=== PATIENT | female | born 1995 | race Caucasian/White ===

== ENCOUNTER → 2017-02-11 | Outpatient (CLI) | payer OTHER ==
[~2017-02-11] MED LIST: IBUP-232 PO; OXYC1TAB63 PO; PRENTAB44
== END ==
LOC: HPND 10:59
PROVIDERS: ATTEND Obstetrics & Gynecology
DX: O36.60X0 Maternal care for excessive fetal growth, unspecified trimester, not applicable or unspecified (principal)
CPT/HCPCS: 76816

== ENCOUNTER 2017-02-17 14:46 | Inpatient (IN) | payer OTHER ==
[~2017-02-17] VITALS: Ht 167.6 cm; Wt 154.7 kg
[2017-02-19] VITALS (9 sets, daily range): BP systolic 99–126; BP diastolic 55–66; PULSE 83–98; RESP 18–28; TEMP 97.7–98; O2SAT 90–98
[2017-02-19] MEDS ORDERED: LACTATED RINGER'S 1000 ML INJ 1,000 ML IV ONE (10:22)
--- NOTE | 2017-02-19 10:24 | HHI.HP ---
HPI Chief Complaint Primary for macrosomia. Date Seen: Feb 19, 2017 Travel History International Travel<30 Days: No Contact w/Intl Traveler<30Days: No History of Present Illness HPI Patient is a 22 year old at 39-1/7 weeks gestation who presents today for primary for macrosomia. She denies any vaginal bleeding or discharge. No gush or leaking of fluid. Positive movement. History Past Medical History Medical History: Denies Significant Hx Obstetric History Obstetric History Past Surgical History Surgical History: No Previous Surgery Family History Family History: Negative Social History Alcohol Use: No Tobacco Use: No Substance Abuse: No Allergies-Medications (Allergen,Severity, Reaction): Coded Allergies: No Known Allergies (Unverified , 02/19/17) Home Meds Reported Medications Multivit-Min W/Fe-FA ( and Iron)1 Tab Tab 02/19/17 Review of Systems Except as stated in HPI: all other systems reviewed are Neg General / Constitutional: No: Fever, Chills Eyes: No: Blurred Vision, Visual changes HENT: No: Headaches Cardiovascular: No: Chest Pain or Discomfort Respiratory: No: Short of Breath Genitourinary: No: Pelvic Pain, Discharge, Vaginal Bleeding Musculoskeletal: Edema Psychiatric: No: Substance Abuse Physical Exam Narrative GENERAL: Well-nourished, well-developed patient. SKIN: Warm and dry. HEAD: Normocephalic and atraumatic. EYES: No scleral icterus. No injection or drainage. ENT: No nasal drainage noted. Mucous membranes pink. Airway patent. NECK: Supple, trachea midline. No JVD. CARDIOVASCULAR: Regular rate and rhythm without murmurs, gallops, or rubs. RESPIRATORY: Breath sounds equal bilaterally. No accessory muscle use. ABDOMEN/GI: Abdomen soft, non-tender, bowel sounds present, no rebound, no guarding Gravid to 40 weeks size GENITOURINARY: Presentation: vertex Membranes: intact Uterine Contractions: none FHT's: Category: I Baseline: 125 Reactive: + Variability: moderate Decels: none EXTREMITIES: No cyanosis or edema. BACK: Nontender without obvious deformity. No CVA tenderness. NEUROLOGICAL: Awake and alert. Motor and sensory grossly within normal limits. Normal speech. Data Data Vital Signs Reviewed: Yes Orders Admit To Inpatient (02/19/17 ) Assessment/Plan Assessment and Plan 22 year old at 39-1/7 weeks gestation. 1. IUP- Category I tracing, reassuring. 2. Primary for macrosomia. 3. GBS negative. dw Florence Newton MD R2 Feb 19, 2017 10:24
[2017-02-19] MEDS ORDERED: PRENTAB44 (10:31)
[2017-02-19] MEDS ORDERED: LACTATED RINGER'S 1000 ML INJ 1,000 ML IV SCH ×2 (10:52→18:25)
[2017-02-19 11:24] LABS: AUTOMATED NEUTROPHIL # 6.9 TH/MM3 (1.8-7.7); BASOPHIL % 0.4 % (0.0-2.0); EOSINOPHIL # 0.1 TH/MM3 (0-0.4); EOSINOPHIL % 1.4 % (0.0-4.0); HEMATOCRIT 35.2 % (35.0-46.0); HEMO FLAGS DIFF FINAL; LYMPH % 17.4 % (9.0-44.0); LYMPHOCYTE # 1.6 TH/MM3 (1.0-4.8); MEAN CELL VOLUME 93.2 FL (80.0-100.0); MEAN CORPUSCULAR HEMOGLOBIN 31.8 PG (27.0-34.0); MEAN CORPUSCULAR HGB CONC 34.1 % (32.0-36.0); MONO % 5.2 % (0.0-8.0); NEUT % 75.6 % (16.0-70.0); PLATELET COUNT 262 TH/MM3 (150-450); RED BLOOD COUNT 3.77 MIL/MM3 (4.00-5.30); RED CELL DISTRIBUTION WIDTH 14.7 % (11.6-17.2); WHITE BLOOD COUNT 9.1 TH/MM3 (4.0-11.0)
[2017-02-19 11:28] LABS: BACTERIA, URINE MANY /hpf; BLOOD, URINE NEG (NEG); COMMENT (UR) CULTURE INDICATED; CULTURE IF INDICATED CULTURE INDICATED; GLUCOSE,URINE NEG (NEG); KETONE, URINE NEG (NEG); MUCUS URINE MANY /lpf (OCC); NITRITE,URINE NEG (NEG); PH, URINE 6.5 (5.0-8.5); SQUAMOUS EPITHELIAL CELL URINE 31 /hpf (0-5); TRANSITIONAL EPI CELLS, URINE 1 /hpf; URINE COLOR DARK-YELLOW (YELLW/STRAW)
[2017-02-19] MEDS ORDERED: ceFAZolin 2 GM PREMIX 50 ML IV SCH (11:30)
[2017-02-19] MEDS ORDERED: CITRIC ACID-SODIUM CITRATE LIQ 30 ML UDC ONE (11:43)
[2017-02-19] MEDS ORDERED: ceFAZolin INJ 1,000 MG VIAL ONE (11:43)
[2017-02-19] MEDS ORDERED: OXYTOCIN 10 UNIT/ML AMP ONE (11:43)
[2017-02-19] MEDS ORDERED: CITRIC ACID-SODIUM CITRATE LIQ 30 ML UDC PO SCH (12:00)
[2017-02-19] MEDS ORDERED: SIMETHICONE 80 MG CHEWABLE TAB PO PRN (13:30)
[2017-02-19] MEDS ORDERED: SODIUM CHLORIDE 0.9% FLUSH 10 ML FLUSH IV FLUSH PRN (13:30)
[2017-02-19] MEDS ORDERED: ONDANSETRON HCL 4 MG/2 ML VIAL IV PUSH PRN (13:30)
[2017-02-19] MEDS ORDERED: oxyCODONE/ACETAMINOPHEN 5 MG/325 MG TAB PO PRN (13:30)
[2017-02-19] MEDS ORDERED: DOCUSATE SODIUM 50 MG/SENNA 8.6 MG TAB PO PRN (13:30)
[2017-02-19] MEDS ORDERED: OXYTOCIN 30 UNITS-500ML PREMIX 500 ML IV ONE (13:30)
--- NOTE | 2017-02-19 13:43 | PD.OP ---
Operative Report Date of Surgery: Feb 19, 2017 Preoperative Diagnosis: (1) macrosomia during in third trimester Postoperative Diagnosis: (1) macrosomia during in third trimester Procedure: Preoperative Diagnosis: 1. Macrosomia 2. Intrauterine at 39-1/7 weeks gestation Postoperative Diagnosis: 1. Macrosomia 4479g 2. Intrauterine at 39-1/7 weeks gestation Procedure Primary low transverse section. Anesthesia Spinal Surgeon Dallin Bhat MD Co-Surgeon Florence Saunders MD Findings Normal female 4479g with Apgars 9 and 9. Normal fallopian tubes, normal ovaries, normal uterus. Complications None. Counts Correct Estimated Blood Loss 500mL Fluids Crystalloids. Disposition The patient tolerated procedure well, went to recovery room in good condition. Procedure in Detail The patient was taken to the operating room, identified by name band and verbally given a spinal anesthetic, prepped and draped in the usual sterile fashion for a primary section. Time-out was taken. A Pfannenstiel incision was made. The incision as taken down to the fascia. The fascia was taken off the rectus muscles by blunt and sharp dissection. The rectus muscles were spread bluntly and the peritoneum entered under direct vision without difficulty. The incision was extended with care to avoid the urinary bladder. The lower uterine segment was identified and a bladder flap was created in the usual fashion, pushing the peritoneum off the bladder. The incision on the uterus was made in a transverse manner and taken down in the midline until the uterine cavity was entered. Clear fluid was noted and the incision was extended with the surgeon's fingers. The fetus was noted to be in vertex position. The head was delivered with the assistance of a Kiwi vacuum and the body of the was delivered immediately following without difficulty. The cord was doubly clamped and cut after a 45-second wait period. The baby was handed to the resuscitation team present. The placenta was removed manually after cord blood was taken and the uterus was curettaged twice with a wet lap. The uterus was delivered from the abdomen. The uterine incision was repaired with a 0 Vicryl in a running fashion in two layers , the second layer imbricating the first. The cul-de-sac was cleaned of blood and debris, the uterus delivered back into the abdomen. The incision was dry. At this point the rectus muscles were reapproximated with 0 Vicryl in a running fashion. The fascia was repaired with 0 Vicryl in a running fashion. The subcu was repaired with 3-0 Vicryl in a running fashion and the skin was repaired with 4-0 Monocryl in a subcuticular manner. She tolerated the procedure well and went to the recovery room in good condition. Surgeon: Dr. Dallin Bhat Pathology Laboratory Aides Teacher(s): Kayleigh Dowd Resident Surgeon: Florence Mahajan MD R2 Feb 19, 2017 13:43
[2017-02-19] MEDS ORDERED: MORPHINE SULFATE PF 5 MG/10 ML VIAL ONE (13:46)
[2017-02-19] MEDS ORDERED: ONDANSETRON HCL 4 MG/2 ML VIAL ONE (13:46)
[2017-02-19] MEDS ORDERED: OXYTOCIN 30 UNITS-500ML PREMIX 500 ML ONE (14:25)
[2017-02-19] MEDS ORDERED: KETOROLAC TROMETHAMINE 60 MG/2 ML (IM) VIAL IM PRN (14:30)
[2017-02-19] MEDS ORDERED: ACETAMINOPHEN 1000 MG/100 ML VIAL IV ONE (15:00)
[2017-02-19] MEDS ORDERED: SODIUM CHLORIDE 0.9% FLUSH 10 ML FLUSH IV FLUSH SCH (21:00)
[2017-02-19] MEDS ORDERED: OXYTOCIN 30 UNITS-500ML PREMIX 500 ML IV PRN (23:30)
[2017-02-20] VITALS: BP 101/63; PULSE 100; RESP 18; TEMP 97.5
[2017-02-20 04:00] VITALS: BP 120/80; PULSE 111; RESP 18; TEMP 99.3
[2017-02-20] MEDS: IBUPROFEN 600 MG TAB PO PRN ×2 (05:49→18:15)
[2017-02-20] MEDS: oxyCODONE/ACETAMINOPHEN 5 MG/325 MG TAB PO PRN ×3 (06:44→22:47)
[2017-02-20 07:08] LABS: AUTOMATED NEUTROPHIL # 7.2 TH/MM3 (1.8-7.7); BASOPHIL % 0.3 % (0.0-2.0); EOSINOPHIL # 0.1 TH/MM3 (0-0.4); EOSINOPHIL % 0.5 % (0.0-4.0); HEMATOCRIT 27.6 % (35.0-46.0); HEMO FLAGS DIFF FINAL; LYMPH % 18.3 % (9.0-44.0); LYMPHOCYTE # 1.8 TH/MM3 (1.0-4.8); MEAN CELL VOLUME 93.4 FL (80.0-100.0); MEAN CORPUSCULAR HEMOGLOBIN 32.1 PG (27.0-34.0); MEAN CORPUSCULAR HGB CONC 34.4 % (32.0-36.0); NEUT % 72.9 % (16.0-70.0); PLATELET COUNT 204 TH/MM3 (150-450); RED BLOOD COUNT 2.95 MIL/MM3 (4.00-5.30); RED CELL DISTRIBUTION WIDTH 14.7 % (11.6-17.2); WHITE BLOOD COUNT 9.9 TH/MM3 (4.0-11.0)
[2017-02-20 08:00] VITALS: BP 102/57; PULSE 87; RESP 20; TEMP 98.2
--- NOTE | 2017-02-20 09:20 | HHI.OB ---
Subjective Post Operative Day: 1 Objective Vitals/I&O Vital Signs Date Time Temp Pulse Resp B/P Pulse Ox O2 Delivery O2 Flow Rate FiO2 02/20/17 04:00 99.3 111 18 120/80 02/20/17 00:00 97.5 100 18 02/20/17 00:00 101/63 02/19/17 20:20 98.0 98 18 122/66 02/19/17 15:41 97.7 83 20 02/19/17 15:41 126/55 02/19/17 15:00 90 02/19/17 15:00 94 18 109/57 02/19/17 14:52 97.8 02/19/17 14:45 112/57 02/19/17 14:45 89 18 98 02/19/17 14:30 96 18 119/59 98 02/19/17 14:15 117/56 02/19/17 14:15 20 02/19/17 14:15 95 28 95 02/19/17 14:00 87 18 122/61 96 02/19/17 13:45 96 02/19/17 13:45 97.9 91 18 99/58 Result Diagram: 02/20/17 0548 Objective Remarks GENERAL: Well-nourished, well-developed patient. CARDIOVASCULAR: Regular rate and rhythm without murmurs, gallops, or rubs. RESPIRATORY: Breath sounds equal bilaterally. No accessory muscle use. ABDOMEN/GI: Abdomen soft, non-tender, bowel sounds present. Incision: pressure dressing, Clean, dry and intact. Fundus: Firm, non-tender at umbilicus. GENITOURINARY: Light to moderate bleeding. EXTREMITIES: No cyanosis, +1 edema to lower extremities, non-tender, without signs of DVT. Medications and IVs Current Medications Medications (Trade) Dose Ordered Sig/Elliott Route Start Time Stop Time Status Last Admin (Lr 1000 ml Inj) 1,000 ml @ 100 mls/hr Q10H IV 02/19/17 18:25 02/20/17 14:24 (NS Flush) 2 ml BID IV FLUSH 02/19/17 21:00 (NS Flush) 2 ml UNSCH PRN IV FLUSH 02/19/17 13:30 (Mylicon Chew) 80 mg QID PRN PO 02/19/17 13:30 (Motrin) 600 mg Q6H PRN PO 02/19/17 13:30 02/20/17 05:49 (Percocet 5-325 Mg) 1 tab Q4H PRN PO 02/19/17 13:30 02/20/17 06:44 (Percocet 5-325 Mg) 2 tab Q4H PRN PO 02/19/17 13:30 (Nadine-Colace) 2 tab Q12H PRN PO 02/19/17 13:30 (M-M-R Ii Inj) 0.5 ml ONCE ONCE SQ 02/20/17 16:00 02/20/17 16:01 (Boostrix Inj) 0.5 ml ONCE ONCE IM 02/20/17 16:00 02/20/17 16:01 (Zofran Inj) 4 mg Q6H PRN IV PUSH 02/19/17 13:30 02/19/17 20:32 Assessment/Plan Problem List: (1) S/P primary low transverse Plan: routine (2) Anemia Plan: will treat pp Assessment and Plan POD #1 pt doing well pain well managed with oral pain medication will shower today denies sob, cp or dizziness bonding with / routine Discharge Planning conside Attending Attestation consider dc in 1-2- days Karlee Mueller Feb 20, 2017 09:20
--- NOTE | 2017-02-20 09:21 | HHI.DCPOC ---
Discharge Care Plan Diagnosis: (1) S/P primary low transverse (2) Anemia Your Health Problems Are: delivery Report Symptoms to Your Doctor -Temperature above 100.5 degrees -Redness, of incision or excessive or foul smelling drainage -Unusual pain or calf pain -Increased vaginal bleeding -Painful or difficulty urinating -Feelings of extreme sadness or anxiety after 2 weeks Goals to Promote Your Health * To prevent worsening of your condition and complications * To maintain your health at the optimal level Directions to Meet Your Goals Take your medications as prescribed Follow your dietary instruction Follow activity as directed Ensure plenty of rest for recovery Drink fluids for hydration Keep your appointments as scheduled Take your immunizations and boosters as scheduled If your symptoms worsen call your PCP, if no PCP go to Urgent Care Center or Emergency Room Smoking is Dangerous to Your Health. Avoid second hand smoke Call the 24-hour crisis hotline for domestic abuse at Karlee Mueller Feb 20, 2017 09:20
[2017-02-20] MEDS ORDERED: DIPHTH/TETANUS/ACEL PERTUSSIS (BOOSTER) 0.5 ML VIAL/PFS IM ONE (16:00)
[2017-02-20] MEDS ORDERED: MEASLES, MUMPS, RUBELLA VACCINE 0.5 ML VIAL SQ ONE (16:00)
[2017-02-20 19:45] VITALS: BP 122/67; PULSE 93; RESP 17; TEMP 98.7
[2017-02-21] MEDS: IBUPROFEN 600 MG TAB PO PRN ×2 (00:37→10:07)
[2017-02-21] MEDS: oxyCODONE/ACETAMINOPHEN 5 MG/325 MG TAB PO PRN ×3 (00:48→11:17)
[2017-02-21 08:00] VITALS: BP 108/71; PULSE 78; RESP 24; TEMP 98.2
[2017-02-21] MEDS ORDERED: IBUP-232 PO (14:06)
[2017-02-21] MEDS ORDERED: OXYC1TAB63 PO (14:06)
--- NOTE | 2017-02-21 14:15 | HHI.OB ---
Subjective Post Operative Day: 2 Remarks Doing well, pain is under controll Baby is doing well Tolerating diet Objective Vitals/I&O Vital Signs Date Time Temp Pulse Resp B/P Pulse Ox O2 Delivery O2 Flow Rate FiO2 02/21/17 08:00 98.2 02/21/17 08:00 78 24 108/71 02/20/17 19:45 98.7 93 17 02/20/17 19:45 122/67 Result Diagram: 02/20/17 0548 Objective Remarks GENERAL: Well-nourished, well-developed patient. CARDIOVASCULAR: Regular rate and rhythm without murmurs, gallops, or rubs. RESPIRATORY: Breath sounds equal bilaterally. No accessory muscle use. ABDOMEN/GI: Abdomen soft, non-tender, bowel sounds present. Incision: pressure dressing, Clean, dry and intact. Fundus: Firm, non-tender at umbilicus. GENITOURINARY: Light to moderate bleeding. EXTREMITIES: No cyanosis, +1 edema to lower extremities, non-tender, without signs of DVT. Medications and IVs Current Medications Medications (Trade) Dose Ordered Sig/Elliott Route Start Time Stop Time Status Last Admin (NS Flush) 2 ml BID IV FLUSH 02/19/17 21:00 (NS Flush) 2 ml UNSCH PRN IV FLUSH 02/19/17 13:30 (Mylicon Chew) 80 mg QID PRN PO 02/19/17 13:30 02/21/17 00:37 (Motrin) 600 mg Q6H PRN PO 02/19/17 13:30 02/21/17 10:07 (Percocet 5-325 Mg) 1 tab Q4H PRN PO 02/19/17 13:30 02/21/17 11:17 (Percocet 5-325 Mg) 2 tab Q4H PRN PO 02/19/17 13:30 02/20/17 11:45 (Nadine-Colace) 2 tab Q12H PRN PO 02/19/17 13:30 (Zofran Inj) 4 mg Q6H PRN IV PUSH 02/19/17 13:30 02/19/17 20:32 Assessment/Plan Problem List: (1) S/P primary low transverse Plan: routine (2) Anemia Plan: will treat pp Assessment and Plan POD #2 pt doing well pain well managed with oral pain medication routine Home today Dallin Bhat MD Feb 21, 2017 14:15
== END 2017-02-21 16:05 | disposition home or self-care (01) | DRG 765 ==
LOC: H2EB 02-19 09:07 → H1EA 02-19 15:21
PROVIDERS: ADMIT Obstetrics & Gynecology; ATTEND Obstetrics & Gynecology
PROC: 10D00Z1 Extraction of Products of Conception, Low, Open Approach (ICD-10-PCS; principal; 2017-02-19)
DX: O36.63X0 Maternal care for excessive fetal growth, third trimester, not applicable or unspecified (principal); Z68.43 Body mass index [BMI] 50.0-59.9, adult; O99.214 Obesity complicating childbirth; E66.9 Obesity, unspecified; O99.02 Anemia complicating childbirth; D64.9 Anemia, unspecified; Z3A.39 39 weeks gestation of pregnancy; Z37.0 Single live birth
CPT/HCPCS: 59025; 76818; 81001; 85025; 86850; 86900; 86901; 87086; 90715; J0690; J2274; J2405; J2590; J3010

== ENCOUNTER 2017-06-14 04:36 | Emergency (ER) | payer OTHER ==
[~2017-06-14] VITALS: Ht 167.6 cm; Wt 144.0 kg
[2017-06-14] MEDS ORDERED: MAPA500T13 PO (04:46)
[2017-06-14 04:47] VITALS: BP 129/75; PULSE 113; RESP 17; TEMP 99; O2SAT 99
[2017-06-14 05:13] LABS: GLUCOSE,URINE NEG (NEG); KETONE, URINE NEG (NEG); NITRITE,URINE NEG (NEG)
[2017-06-14 05:17] LABS: BLOOD, URINE TRACE (NEG)
[2017-06-14 05:18] LABS: BACTERIA, URINE FEW /hpf; COMMENT (UR) CULT NOT INDICATED; CULTURE IF INDICATED CULT NOT INDICATED; RBC, URINE 0-3 /hpf (0-3); URINE COLOR STRAW (YELLW/STRAW)
--- NOTE | 2017-06-14 05:19 | PD ---
HPI Chief Complaint: Fever Time Seen by Provider: 05:15 Travel History International Travel<30 days: No Contact w/Intl Traveler<30days: No Traveled to known affect area: No History of Present Illness HPI 22 year-old female presents to the emergency department for complaint of urinary frequency urgency and lower abdominal discomfort and fever reportedly at home of 107F yesterday and today when she checked it at home herself using her thermometer. Patient states she took a one-time dose of Tylenol and her fever resolved. Patient's had no nausea no vomiting no generalized abdominal pain no diarrhea. No flank pain. Last menstrual period was beginning of May and normal for her denies . Patient has history of recurrent urinary tract infections. Patient states symptoms are the same. The patient rates her pain as 5/10 in intensity. Patient denies any vaginal bleeding or vaginal discharge. PFSH Past Medical History Narrative Medical urinary tract infection; no surgery; no tobacco use; nursing notes reviewed Medical History: Denies Significant Hx Diminished Hearing: No Tetanus Vaccination: < 5 Years Influenza Vaccination: Yes ?: Unknown LMP: 05/15/2017 Social History Alcohol Use: No Tobacco Use: No Substance Use: No Allergies-Medications (Allergen,Severity, Reaction): Coded Allergies: No Known Allergies (Unverified , 06/14/17) Reported Meds & Prescriptions Reported Meds & Active Scripts Active Reported Mapap Extra Strength (Acetaminophen) 500 Mg Tab 1,000 Mg PO Q4-6H PRN Review of Systems Except as stated in HPI: all other systems reviewed are Neg General / Constitutional: Positive: Fever HENT: No: Congestion Cardiovascular: No: Chest Pain or Discomfort Respiratory: No: Shortness of Breath Gastrointestinal: No: Nausea, Vomiting, Abdominal Pain Genitourinary: Positive: Urgency, Frequency, Dysuria, No: Pelvic Pain, Flank Pain, Discharge, Vaginal Bleeding Musculoskeletal: No: Myalgias, Arthralgias Skin: No Rash Neurologic: No: Weakness Psychiatric: No: Anxiety Hematologic/Lymphatic: No: Lymph Node Enlargement Physical Exam Narrative GENERAL: Well-developed well-nourished female in no acute distress no respiratory distress SKIN: Warm and dry. HEAD: Normocephalic. EYES: No scleral icterus. No injection or drainage. NECK: Supple, trachea midline. No JVD or lymphadenopathy. CARDIOVASCULAR: Regular rate and rhythm without murmurs, gallops, or rubs. RESPIRATORY: Breath sounds equal bilaterally. No accessory muscle use. GASTROINTESTINAL: Abdomen soft, non-tender, nondistended. Pelvic exam: Normal external exam no redness no lesions; speculum exam scant mucus no blood no clots no tissue, cervical os closed; bimanual exam no cervical motion tenderness no uterine enlargement no adnexal mass or tenderness. SKELETAL: No cyanosis, or edema. BACK: Nontender without obvious deformity. No CVA tenderness. Data Data Last Documented VS Vital Signs Date Time Temp Pulse Resp B/P (MAP) Pulse Ox O2 Delivery O2 Flow Rate FiO2 06/14/17 06:03 92 18 148/60 (89) 97 Room Air 06/14/17 04:47 99.0 Orders Orders Ed Urine Pregnancytest Poc (06/14/17 05:00) Urinalysis - C+S If Indicated (06/14/17 05:00) ^ Saline Lock (06/14/17 05:21) Complete Blood Count With Diff (06/14/17 05:21) Basic Metabolic Panel (Bmp) (06/14/17 05:21) Lactic Acid (06/14/17 05:21) Blood Culture (06/14/17 05:21) Gc And Chlamydia Pcr (06/14/17 05:35) Wet Prep Profile (06/14/17 05:35) Sodium Chlorid 0.9% 500 Ml Inj (Ns 500 M (06/14/17 06:30) Ketorolac Inj (Toradol Inj) (06/14/17 06:30) Labs Laboratory Tests Test 06/14/17 05:00 06/14/17 05:45 Urine Color STRAW Urine Turbidity CLEAR Urine pH 6.0 Urine Specific [place] 1.005 Urine Protein NEG mg/dL Urine Glucose (UA) NEG mg/dL Urine Ketones NEG mg/dL Urine Occult Blood TRACE Urine Nitrite NEG Urine Bilirubin NEG Urine Leukocyte Esterase SMALL Urine RBC 0-3 /hpf Urine WBC 6-8 /hpf Urine Squamous Epithelial Cells 6-8 /hpf Urine Bacteria FEW /hpf Microscopic Urinalysis Comment CULT NOT INDICATED White Blood Count 8.9 TH/MM3 Red Blood Count 4.30 MIL/MM3 Hemoglobin 12.7 GM/DL Hematocrit 38.3 % Mean Corpuscular Volume 89.0 FL Mean Corpuscular Hemoglobin 29.6 PG Mean Corpuscular Hemoglobin Concent 33.3 % Red Cell Distribution Width 14.3 % Platelet Count 225 TH/MM3 Mean Platelet Volume 7.5 FL Neutrophils (%) (Auto) 76.9 % Lymphocytes (%) (Auto) 15.3 % Monocytes (%) (Auto) 7.2 % Eosinophils (%) (Auto) 0.1 % Basophils (%) (Auto) 0.5 % Neutrophils # (Auto) 6.9 TH/MM3 Lymphocytes # (Auto) 1.4 TH/MM3 Monocytes # (Auto) 0.6 TH/MM3 Eosinophils # (Auto) 0.0 TH/MM3 Basophils # (Auto) 0.0 TH/MM3 CBC Comment DIFF FINAL Differential Comment Clue Cells (Wet Prep) NONE SEEN Vaginal Trichomonas (Wet Prep) NONE SEEN Vaginal Yeast (Wet Prep) NONE SEEN Blood Urea Nitrogen 10 MG/DL Creatinine 0.72 MG/DL Random Glucose 112 MG/DL Calcium Level 9.1 MG/DL Sodium Level 136 MEQ/L Potassium Level 4.0 MEQ/L Chloride Level 103 MEQ/L Carbon Dioxide Level 26.1 MEQ/L Anion Gap 7 MEQ/L Estimat Glomerular Filtration Rate 100 ML/MIN Lactic Acid Level 1.3 mmol/L MDM Medical Decision Making Medical Screen Exam Complete: Yes Emergency Medical Condition: Yes Medical Record Reviewed: Yes Interpretation(s) UA: 6-8 squamous epithelial cells, few bacteria,6-8 WBCs, trace blood; culture not indicated POC hcg: negative wet prep: negative Vital Signs Date Time Temp Pulse Resp B/P (MAP) Pulse Ox O2 Delivery O2 Flow Rate FiO2 06/14/17 06:03 92 18 148/60 (89) 97 Room Air 06/14/17 05:02 18 99 Room Air 06/14/17 04:47 99.0 113 17 129/75 (93) 99 CBC & BMP Diagram 06/14/17 05:45 Calcium Level 9.1 Vital Signs Date Time Temp Pulse Resp B/P (MAP) Pulse Ox O2 Delivery O2 Flow Rate FiO2 06/14/17 06:03 92 18 148/60 (89) 97 Room Air 06/14/17 05:02 18 99 Room Air 06/14/17 04:47 99.0 113 17 129/75 (93) 99 Lactic acid: 1.3, not elevated Differential Diagnosis UTI, viral syndrome, Narrative Course Point of care test negative urinalysis specimens collected and sent for resulting Sepsis Criteria SIRS Criteria (2 or more): Heart rate over 90 Diagnosis Primary Impression: Dysuria Additional Impressions: H/O cystitis Viral syndrome Referrals: Primary Care Physician call for appointment Patient Instructions: General Instructions Additional Instructions: Increase fluid hydration Take acetaminophen/Tylenol every 4 hours as needed for fever 100.4F or greater Take ibuprofen 800 mg as often as every 8 hours as needed for fever 100.4F or greater or for pain associated with inflammation Finished 3 day course of antibiotic for subacute UTI/cystitis Return to the emergency department for any concerns or change in condition Follow-up with your primary care/[facility]EC[facility]IVE Med/Other Pt SpecificInfo: Prescription(s) given Scripts Phenazopyridine (Pyridium) 100 Mg Tab 100 MG PO Q8H Y for DYSURIA, #6 TAB 0 Refills Prov: Anyi Kam MD 06/14/17 Nitrofurantoin Monohydrate Macrocrystals (Macrobid) 100 Mg Cap 100 MG PO BID for Infection, #6 CAP 0 Refills Prov: Anyi Kam MD 06/14/17 Disposition: 01 DISCHARGE HOME Condition: Stable Anyi Kam MD Jun 14, 2017 05:19
[2017-06-14] MEDS ORDERED: SODIUM CHLOR 0.9% 1000 ML INJ 1,000 ML IV SCH (05:30)
[2017-06-14 06:00] LABS: AUTOMATED NEUTROPHIL # 6.9 TH/MM3 (1.8-7.7); BASOPHIL % 0.5 % (0.0-2.0); EOSINOPHIL % 0.1 % (0.0-4.0); HEMATOCRIT 38.3 % (35.0-46.0); LYMPH % 15.3 % (9.0-44.0); LYMPHOCYTE # 1.4 TH/MM3 (1.0-4.8); MEAN CORPUSCULAR HEMOGLOBIN 29.6 PG (27.0-34.0); MEAN CORPUSCULAR HGB CONC 33.3 % (32.0-36.0); MONO % 7.2 % (0.0-8.0); NEUT % 76.9 % (16.0-70.0); PLATELET COUNT 225 TH/MM3 (150-450); RED CELL DISTRIBUTION WIDTH 14.3 % (11.6-17.2); WHITE BLOOD COUNT 8.9 TH/MM3 (4.0-11.0)
[2017-06-14 06:01] LABS: HEMO FLAGS DIFF FINAL
[2017-06-14 06:03] VITALS: BP 148/60; PULSE 92; RESP 18; O2SAT 97
[2017-06-14 06:14] LABS: BICARBONATE 26.1 MEQ/L (21.0-32.0)
[2017-06-14] MEDS ORDERED: PHEN0.4T PO (06:29)
[2017-06-14] MEDS ORDERED: MACR100C2 PO (06:29)
[2017-06-14] MEDS ORDERED: KETOROLAC TROMETHAMINE 30 MG/ML (IVP) VIAL IV PUSH ONE (06:30)
[2017-06-14] MEDS ORDERED: SODIUM CHLORID 0.9% 500 ML INJ 500 ML IV ONE (06:30)
[2017-06-14 06:31] VITALS: PULSE 93; RESP 18; TEMP 99.7; O2SAT 100
[2017-06-14 12:15] LABS: CHLAMYDIA PCR NOT DETECTED (NOT DETECT); NEISSERIA PCR NOT DETECTED (NOT DETECT)
== END 2017-06-14 06:55 | disposition home or self-care (01) ==
LOC: PHED 04:36
DX: R30.0 Dysuria (principal); Z87.440 Personal history of urinary (tract) infections; B34.9 Viral infection, unspecified
CPT/HCPCS: 80048; 81001; 83605; 84703; 85025; 87040; 87210; 87491; 87591; 96374; 99284; J1885; J7040

== ENCOUNTER 2017-06-14 13:54 | Inpatient (IN) | payer OTHER ==
[2017-06-14] VITALS (7 sets, daily range): BP systolic 116–154; BP diastolic 74–83; PULSE 85–133; RESP 16–24; TEMP 98.9–104.5; O2SAT 95–98
[~2017-06-14] VITALS: Ht 167.6 cm; Wt 147.0 kg
[~2017-06-14 13:54] MED LIST changes: +MACR100C2 PO; +MAPA500T13 PO; +PHEN0.4T PO
[2017-06-14] MEDS ORDERED: SODIUM CHLOR 0.9% 1000 ML INJ 1,000 ML IV ONE (14:30)
[2017-06-14] MEDS ORDERED: IBUPROFEN 600 MG TAB PO ONE (14:30)
--- NOTE | 2017-06-14 14:32 | PD ---
HPI Chief Complaint: Fever Time Seen by Provider: 14:14 Travel History International Travel<30 days: No Contact w/Intl Traveler<30days: No Traveled to known affect area: No History of Present Illness HPI The patient was seen and examined in the presence of the nurse. This patient complains of high fever. She was seen her early this morning complaining of fever. She had a fairly extensive workup which didn't reveal much. She was discharged with Macrobid. She took one dose at home but didn't check her temperature is quite elevated and came back. Current temperature 104.5. Patient has some complaints of bilateral flank pain denies midline pain. No injury. She did have some mild dysuria but nothing significant. Denies cough or shortness of breath or abdominal pain or sore throat or runny nose or congestion or diarrhea. No alleviating factors. She took Tylenol 3 hours ago and her fever remains high. No exacerbating factors. Duration 2 days. Severity symptoms is moderate PFSH Past Medical History Diminished Hearing: No Influenza Vaccination: No ?: Not Past Surgical History Section: Yes Social History Alcohol Use: No Tobacco Use: No Substance Use: No Allergies-Medications (Allergen,Severity, Reaction): Coded Allergies: No Known Allergies (Unverified , 06/14/17) Reported Meds & Prescriptions Reported Meds & Active Scripts Active Pyridium (Phenazopyridine HCl) 100 Mg Tab 100 Mg PO Q8H PRN Macrobid (Nitrofurantoin Monoh/Nitrofur Macro) 100 Mg Cap 100 Mg PO BID Reported Mapap Extra Strength (Acetaminophen) 500 Mg Tab 1,000 Mg PO Q4-6H PRN Review of Systems General / Constitutional: Positive: Fever, Chills Eyes: No: Visual changes HENT: No: Headaches Cardiovascular: Positive: Tachycardia, No: Chest Pain or Discomfort Respiratory: No: Shortness of Breath Gastrointestinal: No: Abdominal Pain Genitourinary: Positive: Dysuria, Flank Pain Musculoskeletal: Positive: Pain Skin: No Rash Neurologic: No: Weakness Psychiatric: No: Depression Endocrine: No: Polydipsia Hematologic/Lymphatic: No: Easy Bruising Physical Exam Narrative GENERAL: Well-nourished, well-developed patient with high fever SKIN: Focused skin assessment reveals no rash and nodules. Skin is Warm and dry. HEAD: Atraumatic. Normocephalic. EYES: Pupils equal and round. No scleral icterus. No injection or drainage. ENT: No nasal bleeding or discharge. Mucous membranes pink and moist. Oral cavity clear NECK: Trachea midline. No JVD. No meningeal signs CARDIOVASCULAR: Regular rate and rhythm. No murmur appreciated. RESPIRATORY: No accessory muscle use. Clear to auscultation. Breath sounds equal bilaterally. GASTROINTESTINAL: Abdomen soft, obese, non-tender, nondistended. Hepatic and splenic margins not palpable. MUSCULOSKELETAL: No obvious deformities. No clubbing. No cyanosis. No edema. NEUROLOGICAL: Awake and alert. No obvious cranial nerve deficits. Motor grossly within normal limits. Normal speech. PSYCHIATRIC: Appropriate mood and affect; insight and judgment normal. Data Data Last Documented VS Vital Signs Date Time Temp Pulse Resp B/P (MAP) Pulse Ox O2 Delivery O2 Flow Rate FiO2 06/14/17 15:46 103.0 118 16 116/81 (93) 95 Orders Orders Iv Access Insert/Monitor (06/14/17 14:20) Complete Blood Count With Diff (06/14/17 14:20) Blood Culture (06/14/17 14:20) Ct Abd/Pel W Iv Contrast(Rout) (06/14/17 ) Ibuprofen (Motrin) (06/14/17 14:30) Sodium Chlor 0.9% 1000 Ml Inj (Ns 1000 M (06/14/17 14:30) Chest, Single Ap (06/14/17 ) Iohexol 350 Inj (Omnipaque 350 Inj) (06/14/17 15:31) Urinalysis - C+S If Indicated (06/14/17 15:37) Ceftazidime Inj (Fortaz Inj) (06/14/17 16:15) Admit Order (Ed Use Only) (06/14/17 16:17) Labs Laboratory Tests Test 06/14/17 15:18 06/14/17 15:33 White Blood Count 10.9 TH/MM3 Red Blood Count 4.05 MIL/MM3 Hemoglobin 12.5 GM/DL Hematocrit 35.9 % Mean Corpuscular Volume 88.5 FL Mean Corpuscular Hemoglobin 30.8 PG Mean Corpuscular Hemoglobin Concent 34.7 % Red Cell Distribution Width 14.2 % Platelet Count 178 TH/MM3 Mean Platelet Volume 7.8 FL Neutrophils (%) (Auto) 81.4 % Lymphocytes (%) (Auto) 7.4 % Monocytes (%) (Auto) 7.9 % Eosinophils (%) (Auto) 1.0 % Basophils (%) (Auto) 2.3 % Neutrophils # (Auto) 8.8 TH/MM3 Lymphocytes # (Auto) 0.8 TH/MM3 Monocytes # (Auto) 0.9 TH/MM3 Eosinophils # (Auto) 0.1 TH/MM3 Basophils # (Auto) 0.3 TH/MM3 CBC Comment DIFF FINAL Differential Comment Urine Collection Type CLEAN CATCH Urine Color YELLOW Urine Turbidity CLEAR Urine pH 5.5 Urine Specific [place] 1.015 Urine Protein 30 mg/dL Urine Glucose (UA) NEG mg/dL Urine Ketones NEG mg/dL Urine Occult Blood SMALL Urine Nitrite NEG Urine Bilirubin NEG Urine Leukocyte Esterase NEG Urine RBC 0-3 /hpf Urine WBC 9-14 /hpf Urine Squamous Epithelial Cells 0-5 /hpf Microscopic Urinalysis Comment CULT NOT INDICATED Urine Collection Time 15:33 MDM Medical Decision Making Medical Screen Exam Complete: Yes Emergency Medical Condition: Yes Medical Record Reviewed: Yes Differential Diagnosis Pyelonephritis, perinephric abscess, sepsis, pneumonia Narrative Course I have reviewed the patient's electronic medical record. Reviewed her workup from 5 AM this morning. Urine negative and urinalysis did not meet standards for culture. Patient unremarkable pelvic exam earlier today. IV placed I gave her a dose of Motrin for fever Blood culture obtained CBC is normal Urinalysis shows 9-14 white cells but doesn't meet standards for culture CT of abdomen and pelvis with IV contrast results are reviewed. There is questionable area of the left kidney but doesn't seem convincing. There is no perinephric abscess Once again patient denies IV drug use Etiology of her fever is not entirely clear. She has normal mental status and no meningeal signs and 0 respiratory or flulike complaints She's had 2 visits today and I don't feel sending her home without any follow- up is the in her best interest. Spoke with Dr. Blevins who will do an observation in the hospital Temperature remains high despite Tylenol and Motrin Diagnosis Primary Impression: Acute febrile illness Additional Impression: Pyelonephritis Admitting Information Admitting Physician Requests: Observation Esa Butler MD Jun 14, 2017 14:31
--- NOTE | 2017-06-14 14:59 | RADRPT ---
EXAM DATE/TIME: 06/14/2017 14:42 [facility] COMPARISON: No previous studies available for comparison. INDICATIONS : Fever, headache MEDICAL HISTORY : None. SURGICAL HISTORY : None. ENCOUNTER: Initial ACUITY: 2 days PAIN SCORE: 0/10 LOCATION: Bilateral chest FINDINGS: A single view of the chest demonstrates the lungs to be symmetrically aerated without evidence of mas s, infiltrate or effusion. The cardiomediastinal contours are unremarkable. Osseous structures are intact. CONCLUSION: Normal examination. Small lung volumes. David Urbano MD on June 14, 2017 at 14:57 Board Certified Radiologist. This report was verified electronically.
[2017-06-14 15:29] LABS: AUTOMATED NEUTROPHIL # 8.8 TH/MM3 (1.8-7.7); BASOPHIL # 0.3 TH/MM3 (0-0.2); BASOPHIL % 2.3 % (0.0-2.0); EOSINOPHIL # 0.1 TH/MM3 (0-0.4); HEMATOCRIT 35.9 % (35.0-46.0); LYMPH % 7.4 % (9.0-44.0); LYMPHOCYTE # 0.8 TH/MM3 (1.0-4.8); MEAN CELL VOLUME 88.5 FL (80.0-100.0); MEAN CORPUSCULAR HEMOGLOBIN 30.8 PG (27.0-34.0); MEAN CORPUSCULAR HGB CONC 34.7 % (32.0-36.0); MONO % 7.9 % (0.0-8.0); NEUT % 81.4 % (16.0-70.0); PLATELET COUNT 178 TH/MM3 (150-450); RED BLOOD COUNT 4.05 MIL/MM3 (4.00-5.30); RED CELL DISTRIBUTION WIDTH 14.2 % (11.6-17.2); WHITE BLOOD COUNT 10.9 TH/MM3 (4.0-11.0)
[2017-06-14] MEDS ORDERED: IOHEXOL 350 MG/ML 10 ML VIAL (for RAD DIAG) IVCONTRAST ONE (15:31)
[2017-06-14 15:34] LABS: HEMO FLAGS DIFF FINAL
[2017-06-14 15:43] LABS: BLOOD, URINE SMALL (NEG); GLUCOSE,URINE NEG (NEG); KETONE, URINE NEG (NEG); NITRITE,URINE NEG (NEG); PH, URINE 5.5 (5.0-8.5)
--- NOTE | 2017-06-14 15:49 | RADRPT ---
EXAM DATE/TIME: 06/14/2017 15:21 [facility] COMPARISON: No previous studies available for comparison. INDICATIONS : Mid lower back pain and fever. History of urinary tract infection. IV CONTRAST: 100 cc Omnipaque 350 (iohexol) IV ORAL CONTRAST: No oral contrast ingested. RADIATION DOSE: 22.38 CTDIvol (mGy) MEDICAL HISTORY : None SURGICAL HISTORY : section. ENCOUNTER: Initial ACUITY: 2 days PAIN SCALE: 6/10 LOCATION: lower back TECHNIQUE: Volumetric scanning of the abdomen and pelvis was performed. Using automated exposure control and ad justment of the mA and/or kV according to patient size, radiation dose was kept as low as reasonably achievable to obtain optimal diagnostic quality images. DICOM format image data is available electro nically for review and comparison. FINDINGS: LOWER LUNGS: The visualized lower lungs are clear. LIVER: Homogeneous density without lesion. There is no dilation of the biliary tree. No calcified gallston es. SPLEEN: Normal size without lesion. PANCREAS: Within normal limits. KIDNEYS: There is very slight decreased enhancement the left kidney particular lower pole could represent pyel onephritis. ADRENAL GLANDS: Within normal limits. VASCULAR: There is no aortic aneurysm. BOWEL/MESENTERY: The stomach, small bowel, and colon demonstrate no acute abnormality. There is no free intraperitone al air or fluid. ABDOMINAL WALL: Within normal limits. RETROPERITONEUM: There is no lymphadenopathy. BLADDER: No wall thickening or mass. REPRODUCTIVE: Within normal limits. INGUINAL: There is no lymphadenopathy or hernia. MUSCULOSKELETAL: Within normal limits for patient age. CONCLUSION: Probable pyelonephritis lower pole left kidney. Rest of the study is unremarkable David Urbano MD on June 14, 2017 at 15:45 Board Certified Radiologist. This report was verified electronically.
[2017-06-14 15:52] LABS: COMMENT (UR) CULT NOT INDICATED; CULTURE IF INDICATED CULT NOT INDICATED; METHOD OF COLLECTION CLEAN CATCH; RBC, URINE 0-3 /hpf (0-3); SQUAMOUS EPITHELIAL CELL URINE 0-5 /hpf (0-5); URINE COLOR YELLOW (YELLW/STRAW)
[2017-06-14] MEDS ORDERED: cefTAZidime INJ 2,000 MG in SODIUM CHLORIDE 0.9% INJ 100 ML IV ONE (16:15)
--- NOTE | 2017-06-14 17:26 | HHI.HP ---
HPI Service [facility] Hospitalists Primary Care Physician Michelle Ross MD Admission Diagnosis acute febrile illness,?pyelo Chief Complaint: Fever, dysuria Travel History International Travel<30 Days: No Contact w/Intl Traveler <30 Da: No Traveled to Known Affected Are: No History of Present Illness 22 year-old female presents to the emergency department for the second time today for complaint of urinary frequency urgency and lower abdominal discomfort and fever reportedly at home of 107F yesterday and today when she checked it at home herself using her thermometer. Patient states she took a one-time dose of Tylenol and her fever resolved. Patient's had no nausea no vomiting no generalized abdominal pain no diarrhea. Last menstrual period was beginning of May and normal for her denies . Patient has history of recurrent urinary tract infections with ureterovesicular reflux. Her first series kidney infection was at the age of 2 yo. Patient states symptoms are the same as previous urinary tract infections except for the high fever. She generally does not have a fever with her infections but has had 3 similar infections in her lifetime with high fever. Patient denies any vaginal bleeding or vaginal discharge. She had the essentially negative workup on her first visit around 6 AM today except for questionable abnormalities on her urine. She was given Macrobid and discharged home. She started having fevers again this afternoon and presented back to the ER with a temp of 104.5 and elevated heart rate in the 130s. Reevaluation CBC essentially unremarkable and urine is still minimally abnormal. CT abdomen and pelvis was performed due to complain of some mid back to left flank pain. CT noted for questionable finding in the left lower pole of the kidney which could be associated with pyelonephritis. CT was read as probable pyelonephritis left kidney. It is noted that patient reports she had some scarring and damage to her left kidney as a result of the "kidney" infection she had at age 32 years old. Despite the high fever and tachycardia the patient appears relatively well and in no significant distress on my exam. She notes that she had one episode of vomiting this afternoon prior to presenting back to the ER. No other sick at home. She denies any neck stiffness or photophobia. Denies rash or polyarthralgia. Review of Systems Constitutional: COMPLAINS OF: Diaphoretic episodes, Fever, Chills, DENIES: Fatigue, Weight gain, Weight loss, Dizziness, Change in appetite, Night Sweats Endocrine: DENIES: Abnorml menstrual pattern, Heat/cold intolerance, Polydipsia , Polyuria, Polyphagia Eyes: DENIES: Blurred vision, Diplopia, Eye inflammation, Eye pain, Vision loss , Photosensitivity, Double Vision Ears, nose, mouth, throat: DENIES: Tinnitus, Hearing loss, Vertigo, Nasal discharge, Oral lesions, Throat pain, Hoarseness, Ear Pain, Running Nose, Epistaxis, Sinus Pain, Toothache, Odynophagia Respiratory: DENIES: Apneas, Cough, Snoring, Wheezing, Hemoptysis, Sputum production, Shortness of breath Cardiovascular: DENIES: Chest pain, Palpitations, Syncope, Dyspnea on Exertion , PND, Lower Extremity Edema, Orthopnea, Claudication Gastrointestinal: COMPLAINS OF: Nausea, Vomiting, DENIES: Abdominal pain, Black stools, Bloody stools, BRB per rectum, Constipation, Diarrhea, GERD, Reflux, Difficulty Swallowing, Anorexia, See HPI Genitourinary: COMPLAINS OF: Urgency, Dysuria, DENIES: Abnormal vaginal bleeding, Dysmenorrhea, Dyspareunia, Sexual dysfunction, Urinary frequency, Urinary incontinence, Hematuria, Nocturia, Vaginal discharge Musculoskeletal: DENIES: Joint pain, Muscle aches, Stiffness, Joint Swelling, Back pain, Neck pain Integumentary: DENIES: Abnormal pigmentation, Pruritus, Rash, Nail changes, Breast masses, Breast skin changes, Nipple discharge Hematologic/lymphatic: DENIES: Bruising, Lymphadenopathy Immunologic/allergic: DENIES: Eczema, Urticaria Neurologic: DENIES: Abnormal gait, Headache, Localized weakness, Paresthesias, Seizures, Speech Problems, Tremor, Poor Balance Psychiatric: DENIES: Anxiety, Confusion, Mood changes, Depression, Hallucinations, Agitation, Suicidal Ideation, Homicidal Ideation, Delusions, History of Bipolar, History of Schizophrenia Past Family Social History Past Medical History Obesity Recurrent urinary tract infections and what sounds like possible pyelonephritis on 2-3 separate occasions Past Surgical History approximate 4 month ago Reported Medications Does not take any meds typically but was started on Macrobid earlier today Allergies: Coded Allergies: No Known Allergies (Unverified , 06/14/17) Family History Noncontributory, specifically no familial febrile syndromes, recurrent infections, immunodeficiencies or connective tissue disorders. Social History Denies alcohol tobacco or illicit drug use Stays at home with her 4-month-old infant Has been for approximately one year Born and raised in [place], [place] Denies any recent foreign travel. Physical Exam Vital Signs Vital Signs Date Time Temp Pulse Resp B/P (MAP) Pulse Ox O2 Delivery O2 Flow Rate FiO2 06/14/17 16:48 99.3 105 16 118/81 (93) 97 06/14/17 16:46 99.3 102 16 118/81 (93) 97 06/14/17 15:46 103.0 118 16 116/81 (93) 95 06/14/17 14:01 104.5 133 18 154/83 (106) 98 Physical Exam GENERAL: This is a well-nourished, obese, well-developed patient, in no apparent distress. Cooperative and pleasant. SKIN: No rashes, ecchymoses or lesions. Cool and dry. HEAD: Atraumatic. Normocephalic. No temporal or scalp tenderness. EYES: Pupils equal round and reactive. Extraocular motions intact. No scleral icterus. No injection or drainage. ENT: Nose without bleeding, purulent drainage or septal hematoma. Airway patent. NECK: Trachea midline. No JVD or lymphadenopathy. Supple, nontender, no meningeal signs. CARDIOVASCULAR: Tachycardic rate and regular rhythm without murmurs, gallops, or rubs. Rate approximately 112 on my exam. RESPIRATORY: Clear to auscultation. Breath sounds equal bilaterally. No wheezes , rales, or rhonchi. GASTROINTESTINAL: Abdomen soft, non-tender, nondistended. No hepato-splenomegaly , or palpable masses. No guarding. Bowel sounds normal. MUSCULOSKELETAL: Extremities without clubbing, cyanosis, or edema. No joint tenderness, effusion, or edema noted. No calf tenderness. No CVA tenderness. NEUROLOGICAL: Awake and alert. Cranial nerves II through XII intact. Motor and sensory grossly within normal limits. Five out of 5 muscle strength in all muscle groups. Normal speech. Laboratory Laboratory Tests Test 06/14/17 15:18 06/14/17 15:33 White Blood Count 10.9 Red Blood Count 4.05 Hemoglobin 12.5 Hematocrit 35.9 Mean Corpuscular Volume 88.5 Mean Corpuscular Hemoglobin 30.8 Mean Corpuscular Hemoglobin Concent 34.7 Red Cell Distribution Width 14.2 Platelet Count 178 Mean Platelet Volume 7.8 Neutrophils (%) (Auto) 81.4 Lymphocytes (%) (Auto) 7.4 Monocytes (%) (Auto) 7.9 Eosinophils (%) (Auto) 1.0 Basophils (%) (Auto) 2.3 Neutrophils # (Auto) 8.8 Lymphocytes # (Auto) 0.8 Monocytes # (Auto) 0.9 Eosinophils # (Auto) 0.1 Basophils # (Auto) 0.3 CBC Comment DIFF FINAL Differential Comment Urine Collection Type CLEAN CATCH Urine Color YELLOW Urine Turbidity CLEAR Urine pH 5.5 Urine Specific [place] 1.015 Urine Protein 30 Urine Glucose (UA) NEG Urine Ketones NEG Urine Occult Blood SMALL Urine Nitrite NEG Urine Bilirubin NEG Urine Leukocyte Esterase NEG Urine RBC 0-3 Urine WBC 9-14 Urine Squamous Epithelial Cells 0-5 Microscopic Urinalysis Comment CULT NOT INDICATED Urine Collection Time 15:33 Date/Time Source Procedure Growth Status 06/14/17 15:18 Blood Peripheral Aerobic Blood Culture Pending Received 06/14/17 15:18 Blood Peripheral Anaerobic Blood Culture Pending Received Result Diagram: 06/14/17 1518 Caprini VTE Risk Assessment Caprini VTE Risk Assessment: No/Low Risk (score <= 1) Caprini Risk Assessment Model Point Value = 1 Point Value = 2 Point Value = 3 Point Value = 5 Age 41-60 Minor surgery BMI > 25 kg/m2 Swollen legs Varicose veins or History of unexplained or recurrent spontaneous Oral contraceptives or hormone replacement Sepsis (< 1 month) Serious lung disease, including pneumonia (< 1 month) Abnormal pulmonary function Acute myocardial infarction Congestive heart failure (< 1 month) History of inflammatory bowel disease Medical patient at bed rest Age 61-74 Arthroscopic surgery Major open surgery (> 45 min) Laparoscopic surgery (> 45 min) Malignancy Confined to bed (> 72 hours) Immobilizing plaster cast Central venous access Age >= 75 History of VTE Family history of VTE Factor V Leiden Prothrombin [id number] Lupus anticoagulant Anticardiolipin antibodies Elevated serum homocysteine Heparin-induced thrombocytopenia Other congenital or acquired thrombophilia Stroke (< 1 month) Elective arthroplasty Hip, pelvis, or leg fracture Acute spinal cord injury (< 1 month) Prophylaxis Regimen Total Risk Factor Score Risk Level Prophylaxis Regimen 0-1 Low Early ambulation 2 Moderate Order ONE of the following: *Sequential Compression Device (SCD) *Heparin 5000 units SQ BID 3-4 Higher Order ONE of the following medications: *Heparin 5000 units SQ TID *Enoxaparin/Lovenox 40 mg SQ daily (WT < 150 kg, CrCl > 30 mL/min) *Enoxaparin/Lovenox 30 mg SQ daily (WT < 150 kg, CrCl > 10-29 mL/min) *Enoxaparin/Lovenox 30 mg SQ BID (WT < 150 kg, CrCl > 30 mL/min) AND/OR *Sequential Compression Device (SCD) 5 or more Highest Order ONE of the following medications: *Heparin 5000 units SQ TID (Preferred with Epidurals) *Enoxaparin/Lovenox 40 mg SQ daily (WT < 150 kg, CrCl > 30 mL/min) *Enoxaparin/Lovenox 30 mg SQ daily (WT < 150 kg, CrCl > 10-29 mL/min) *Enoxaparin/Lovenox 30 mg SQ BID (WT < 150 kg, CrCl > 30 mL/min) AND *Sequential Compression Device (SCD) Assessment and Plan Problem List: (1) Acute febrile illness ICD Codes: R50.9 - Fever, unspecified Status: Acute Plan: Possible mild pyelonephritis versus underlying viral syndrome. Uncomplicated urinary tract infection should not produce such elevations of temperatures. Patient specifically denies any upper respiratory symptoms or GI symptoms. Given her history, recurrent fever and CT findings, pyelonephritis would be a reasonable supposed etiology. (2) Pyelonephritis ICD Codes: N12 - Tubulo-interstitial nephritis, not specified as acute or chronic Status: Acute Plan: Provide IV fluids and IV antibiotics. Antipyretics as needed. Assessment and Plan Hopefully discharge home tomorrow. Code Status full Discussed Condition With Patient, her and ER physician. Bijan Blevins MD PhD Jun 14, 2017 17:26
[2017-06-14] MEDS ORDERED: PHENAZOPYRIDINE HCL 200 MG TAB PO PRN (17:30)
[2017-06-14] MEDS: SODIUM CHLORIDE 0.9% FLUSH 10 ML FLUSH IV FLUSH SCH (20:05)
[2017-06-14] MEDS: SODIUM CHLOR 0.9% 1000 ML INJ 1,000 ML IV SCH (20:05)
[2017-06-14] MEDS: ACETAMINOPHEN 325 MG TAB PO PRN (20:05)
[2017-06-14] MEDS: SODIUM CHLORIDE 0.9% FLUSH 10 ML FLUSH IV FLUSH PRN (20:12)
[2017-06-14] MEDS: ONDANSETRON HCL 4 MG/2 ML VIAL IV PUSH PRN (20:12)
[2017-06-15] VITALS: BP 101/52; PULSE 96; RESP 18; TEMP 100.6; O2SAT 99
[2017-06-15] MEDS: cefTRIAXone INJ 1,000 MG in SODIUM CHLORIDE 0.9% INJ 100 ML IV SCH (00:35)
[2017-06-15] MEDS: SODIUM CHLORIDE 0.9% FLUSH 10 ML FLUSH IV FLUSH PRN (00:36)
[2017-06-15] MEDS: ACETAMINOPHEN 325 MG TAB PO PRN ×3 (03:12→16:38)
[2017-06-15] MEDS: SODIUM CHLOR 0.9% 1000 ML INJ 1,000 ML IV SCH ×2 (03:26→14:27)
[2017-06-15 04:00] VITALS: TEMP 100.5
[2017-06-15 08:00] VITALS: BP 95/56; PULSE 90; RESP 18; TEMP 99.8; O2SAT 97
--- NOTE | 2017-06-15 08:27 | HHI.PR ---
Subjective Remarks Reports that she slept relatively well when she got up in her room. Flank pain has resolved. No more nausea or vomiting. Still having intermittent fevers but fever curve seems to be improving. Objective Vitals Vital Signs Date Time Temp Pulse Resp B/P (MAP) Pulse Ox O2 Delivery O2 Flow Rate FiO2 06/15/17 04:00 100.5 06/15/17 00:00 100.6 96 18 101/52 (68) 99 06/14/17 22:00 101.1 06/14/17 20:00 104.2 121 24 121/75 (90) 98 06/14/17 18:00 98.9 85 17 121/74 (90) 96 06/14/17 17:37 06/14/17 16:48 99.3 105 16 118/81 (93) 97 06/14/17 16:46 99.3 102 16 118/81 (93) 97 06/14/17 15:46 103.0 118 16 116/81 (93) 95 06/14/17 14:01 104.5 133 18 154/83 (106) 98 GENERAL: No acute distress, sleeping, arouses to voice. Alert and oriented. Obese. SKIN: Warm and dry. No obvious rash noted. HEAD: Normocephalic. EYES: No scleral icterus. No injection or drainage. NECK: Supple, trachea midline. No JVD or lymphadenopathy. CARDIOVASCULAR: Regular rate and rhythm without murmurs, gallops, or rubs. RESPIRATORY: Breath sounds equal bilaterally. No accessory muscle use. GASTROINTESTINAL: Abdomen soft, non-tender, nondistended. Bowel sounds normal. No suprapubic tenderness. MUSCULOSKELETAL: No cyanosis, or edema. BACK: Nontender without obvious deformity. No CVA tenderness. Result Diagram: 06/14/17 1518 Urinary Catheter: No Vascular Central Line Catheter: No A/P Problem List: (1) Acute febrile illness ICD Codes: R50.9 - Fever, unspecified Status: Acute Plan: Possible mild pyelonephritis versus underlying viral syndrome. Uncomplicated urinary tract infection should not produce such elevations of temperatures. Patient specifically denies any upper respiratory symptoms or GI symptoms. Given her history, recurrent fever and CT findings, pyelonephritis would be a reasonable supposed etiology. Fever curve appears to be improving. If fever continues to improve and patient continues tolerating oral intake. Today, we'll give another dose of Rocephin and likely discharge home on a quinolone. (2) Pyelonephritis ICD Codes: N12 - Tubulo-interstitial nephritis, not specified as acute or chronic Status: Acute Plan: Provide IV fluids and IV antibiotics. Antipyretics as needed. Discharge Planning Hopefully discharge home later today versus tomorrow morning. Will depend on clinical progress. Bijan Blevins MD PhD Jun 15, 2017 08:27
[2017-06-15] MEDS: SODIUM CHLORIDE 0.9% FLUSH 10 ML FLUSH IV FLUSH SCH (09:00)
[2017-06-15 10:36] VITALS: TEMP 103
[2017-06-15] MEDS: ONDANSETRON HCL 4 MG/2 ML VIAL IV PUSH PRN (10:50)
[2017-06-15 12:00] VITALS: BP 102/68; PULSE 94; RESP 18; TEMP 99; O2SAT 97
--- NOTE | 2017-06-15 15:59 | HHI.PR ---
Addendum to Inpatient Note Addendum Reason: Additional Documentation Additional Information pt still spiking fevers at times, but not as high as previous. Flank pain improved. Tolerating oral intake. One episode of vomiting this afternoon. She does admit to slight frontal headache and some neck spasm but has no photophobia. On examination her neck is not stiff in early no tenderness to palpation over the central neck. Does have slight tenderness to palpation over the frontal sinuses bilaterally. We'll make full admit to keep her at least overnight and get another dose of IV antibiotic in her. We'll also provide tramadol for her headache. Based on my exam and findings I do not strongly suspect meningitis. Bijan Blevins MD PhD Jun 15, 2017 15:59
[2017-06-15 16:00] VITALS: BP 129/79; PULSE 111; RESP 18; TEMP 102.9; O2SAT 97
[2017-06-15] MEDS: traMADol HCL 50 MG TAB PO PRN (16:38)
[2017-06-15] MEDS ORDERED: IBUPROFEN 400 MG TAB PO ONE (17:45)
[2017-06-16] VITALS: BP 108/61; PULSE 80; RESP 18; TEMP 98.5; O2SAT 98
[2017-06-16] MEDS: cefTRIAXone INJ 1,000 MG in SODIUM CHLORIDE 0.9% INJ 100 ML IV SCH (00:27)
[2017-06-16] MEDS: SODIUM CHLORIDE 0.9% FLUSH 10 ML FLUSH IV FLUSH SCH ×2 (00:28→09:05)
--- NOTE | 2017-06-16 07:11 | HHI.PR ---
Subjective Remarks Fever continues to diminish but still having some elevations of near 103 at times. She does complain of some neck spasm but not any pain in the center of her neck and has full range of motion of her neck. No photophobia. She reports she had 3 episodes of loose stool yesterday. No hematochezia or mucoid stool. Her mother reportedly told her that her grandfather had some febrile illness intermittently for 3 years prior to his passing which they treated with steroids. Objective Vitals Vital Signs Date Time Temp Pulse Resp B/P (MAP) Pulse Ox O2 Delivery O2 Flow Rate FiO2 06/16/17 00:00 98.5 80 18 108/61 (77) 98 06/15/17 17:38 18 06/15/17 16:00 102.9 111 18 129/79 (96) 97 06/15/17 12:00 99.0 94 18 102/68 (79) 97 06/15/17 10:36 103.0 06/15/17 08:00 99.8 90 18 95/56 (69) 97 GENERAL: No acute distress. Alert and oriented. Obese. SKIN: Warm and dry. No obvious rash noted. HEAD: Normocephalic. EYES: No scleral icterus. No injection or drainage. No increased sensitivity to light. No globe tenderness. NECK: Supple, trachea midline. No JVD or lymphadenopathy. Slight spasm bilaterally but no central tenderness to palpation. CARDIOVASCULAR: Regular rate and rhythm without murmurs, gallops, or rubs. RESPIRATORY: Breath sounds equal bilaterally. No accessory muscle use. GASTROINTESTINAL: Abdomen soft, non-tender, nondistended. Bowel sounds normal. No suprapubic tenderness. MUSCULOSKELETAL: No cyanosis, or edema. BACK: Nontender without obvious deformity. No CVA tenderness. Result Diagram: 06/14/17 1518 Urinary Catheter: No Vascular Central Line Catheter: No A/P Problem List: (1) Acute febrile illness ICD Codes: R50.9 - Fever, unspecified Status: Acute Plan: Possible mild pyelonephritis versus underlying viral syndrome. Uncomplicated urinary tract infection should not produce such elevations of temperatures. Given her history, recurrent fever and CT findings, pyelonephritis would be a reasonable supposed etiology. She has noted a slight cough and 3 episodes of diarrhea yesterday. Fever curve appears to be improving. CRP noted. She has some neck spasm but no central tenderness to palpation. The neck pain seems to be more musculoskeletal and I do not strongly suspect meningitis in this patient. We' ll repeat CRP. We'll reculture patient if she spikes another temperature 102. If she remained relatively afebrile remainder the day, hopefully we can discharge home later this evening. (2) Pyelonephritis ICD Codes: N12 - Tubulo-interstitial nephritis, not specified as acute or chronic Status: Acute Plan: Continue antibiotics. Continue oral fluid intake. Antipyretics as needed. Discharge Planning Hopefully discharge home later today versus tomorrow morning. Will again depend on clinical progress. Bijan Blevins MD PhD Jun 16, 2017 07:11
[2017-06-16 08:00] VITALS: BP 132/96; PULSE 94; RESP 17; TEMP 102; O2SAT 95
[2017-06-16] MEDS ORDERED: PILL SPLITTER OTHER PRN (08:00)
[2017-06-16] MEDS ORDERED: METHOCARBAMOL 500 MG TAB PO PRN (08:00)
[2017-06-16] MEDS: IBUPROFEN 400 MG TAB PO PRN ×2 (09:03→15:29)
[2017-06-16] MEDS: ACETAMINOPHEN 325 MG TAB PO PRN (09:04)
[2017-06-16 09:08] LABS: AUTOMATED NEUTROPHIL # 6.6 TH/MM3 (1.8-7.7); BASOPHIL % 0.3 % (0.0-2.0); EOSINOPHIL # 0.1 TH/MM3 (0-0.4); EOSINOPHIL % 0.8 % (0.0-4.0); HEMATOCRIT 32.8 % (35.0-46.0); HEMO FLAGS DIFF FINAL; LYMPHOCYTE # 1.6 TH/MM3 (1.0-4.8); MEAN CELL VOLUME 88.9 FL (80.0-100.0); MEAN CORPUSCULAR HEMOGLOBIN 28.5 PG (27.0-34.0); MONO % 8.3 % (0.0-8.0); NEUT % 72.6 % (16.0-70.0); PLATELET COUNT 182 TH/MM3 (150-450); RED BLOOD COUNT 3.69 MIL/MM3 (4.00-5.30); RED CELL DISTRIBUTION WIDTH 14.5 % (11.6-17.2); WHITE BLOOD COUNT 9.1 TH/MM3 (4.0-11.0)
[2017-06-16] MEDS: ONDANSETRON HCL 4 MG/2 ML VIAL IV PUSH PRN (10:10)
[2017-06-16 12:00] VITALS: BP 107/68; PULSE 76; RESP 17; TEMP 98; O2SAT 97
[2017-06-16 20:00] VITALS: BP 109/67; PULSE 72; RESP 20; TEMP 98.2; O2SAT 99
[2017-06-17] VITALS: BP 94/54; PULSE 72; RESP 20; TEMP 98.7; O2SAT 98
[2017-06-17] MEDS: SODIUM CHLORIDE 0.9% FLUSH 10 ML FLUSH IV FLUSH SCH ×3 (01:09→23:51)
[2017-06-17] MEDS: cefTRIAXone INJ 1,000 MG in SODIUM CHLORIDE 0.9% INJ 100 ML IV SCH (01:09)
--- NOTE | 2017-06-17 06:43 | HHI.PR ---
Subjective Remarks Last few temperatures have been afebrile. She did have another spike yesterday up to 102. She notes that she had about 6 loose stools yesterday. She reports these are partially formed with a liquid component. No hematochezia or melena. No more vomiting. Headache much improved. Still has some spasm in her neck muscles. Patient notes that she ambulates in the room multiple times during the day. It is noted that her and remained in the room with her during her hospital stay. I have cautioned her about handling the baby or having close contact while she has this febrile illness. She understands risks but reports she never been from the child and doesn't want to be at this point. Objective Vitals Vital Signs Date Time Temp Pulse Resp B/P (MAP) Pulse Ox O2 Delivery O2 Flow Rate FiO2 06/17/17 00:00 98.7 72 20 94/54 (67) 98 06/16/17 20:00 98.2 72 20 109/67 (81) 99 06/16/17 12:00 98.0 76 17 107/68 (81) 97 06/16/17 08:00 102.0 94 17 132/96 (108) 95 GENERAL: Awake, alert, obese. No acute distress. Cooperative with exam. SKIN: Warm and dry. HEAD: Normocephalic. EYES: No scleral icterus. No injection or drainage. NECK: Supple, trachea midline. No JVD or lymphadenopathy. Slight paracervical spasm. No central tenderness to palpation. Full range of motion. CARDIOVASCULAR: Regular rate and rhythm without murmurs, gallops, or rubs. RESPIRATORY: Breath sounds equal bilaterally. No accessory muscle use. GASTROINTESTINAL: Abdomen soft, non-tender, nondistended. Bowel sounds normal. MUSCULOSKELETAL: No cyanosis, or edema. BACK: Nontender without obvious deformity. No CVA tenderness. Result Diagram: 06/16/17 0845 Imaging Last Impressions Chest X-Ray 06/14/17 0000 Signed Impressions: Service Date/Time: Wednesday, June 14, 2017 14:42 - CONCLUSION: Normal examination. Small lung volumes. David Urbano MD Abdomen/Pelvis CT 06/14/17 0000 Signed Impressions: Service Date/Time: Wednesday, June 14, 2017 15:21 - CONCLUSION: Probable pyelonephritis lower pole left kidney. Rest of the study is unremarkable David Urbano MD Vascular Central Line Catheter: No A/P Problem List: (1) Acute febrile illness ICD Codes: R50.9 - Fever, unspecified Status: Acute Plan: Possible mild pyelonephritis versus underlying viral syndrome. Uncomplicated urinary tract infection should not produce such elevations of temperatures. Given her history, recurrent fever and CT findings, pyelonephritis would be a reasonable supposed etiology. She has noted a slight cough and 3 episodes of diarrhea yesterday. Fever curve appears to be improving. CRP noted. She has some neck spasm but no central tenderness to palpation. The neck pain seems to be more musculoskeletal and I do not strongly suspect meningitis in this patient. Last 3 temperatures have been normal. ID consult requested yesterday. We will try oral Cipro. She had some loose stools so I will send for C. difficile although I do not strongly suspect based on timing and her description of the stools. Again cautioned about possible transfer of disease to her infant. (2) Pyelonephritis ICD Codes: N12 - Tubulo-interstitial nephritis, not specified as acute or chronic Status: Acute Plan: Continue antibiotics. Try to convert to oral Cipro. Continue oral fluid intake. Antipyretics as needed. Discharge Planning Hopefully discharge home later today versus tomorrow morning. Will again depend on clinical progress. Bijan Blevins MD PhD Jun 17, 2017 06:43
[2017-06-17 08:00] VITALS: BP 117/76; PULSE 97; RESP 18; TEMP 101.8; O2SAT 94
--- NOTE | 2017-06-17 08:31 | PD.CONS ---
History of Present Illness Service Infectious disease Consult Requested By Dr Armaan Blevins Reason for Consult Fever Primary Care Physician Michelle Ross MD Diagnoses: (1) Pyelonephritis (2) Acute febrile illness History of Present Illness 22 y/o female patient with a h/o VUR that resolved when she was 9 and h/o Pyelonephritis when she was 2 and h/o recurrent UTI ( about once a month - no h/ o MDRO) - came to ER the day prior to admission for dysuria- UA with some leucocyte esterase - given Macrodantin- took one dose but threw up that dose and then had high fevers with severe chills and rigors and so came back to hosp. UA looked ok but CT scan showed ? Pyelonephritis . Blood cultures are negative and pt has been on Ceftriaxone 3 days with continued fevers. Also c/o headache. No cough or shortness of breath. Review of Systems Constitutional: COMPLAINS OF: Fever, Chills Endocrine: DENIES: Polydipsia, Polyphagia Eyes: DENIES: Blurred vision, Diplopia, Eye inflammation Ears, nose, mouth, throat: DENIES: Hearing loss, Nasal discharge, Oral lesions , Throat pain, Sinus Pain, Toothache Respiratory: DENIES: Cough, Wheezing, Shortness of breath Cardiovascular: DENIES: Chest pain, Palpitations Gastrointestinal: COMPLAINS OF: Diarrhea, DENIES: Abdominal pain, Constipation , Nausea Genitourinary: COMPLAINS OF: Urinary frequency, Urgency, DENIES: Hematuria Musculoskeletal: COMPLAINS OF: Joint pain, Back pain, DENIES: Joint Swelling, Neck pain Integumentary: DENIES: Abnormal pigmentation, Pruritus, Rash Hematologic/lymphatic: DENIES: Bruising Neurologic: COMPLAINS OF: Headache, DENIES: Localized weakness, Paresthesias, Seizures Psychiatric: DENIES: Anxiety, Confusion, Mood changes Past Family Social History Allergies: Coded Allergies: No Known Allergies (Unverified , 06/14/17) Past Medical History VUR- resolved at 9 Recurrent UTI Pyelonephritis at 2 Past Surgical History C- section 4 months ago Active Ordered Medications Ceftriaxone Cipro added today Family History Non contributory Social History Lives with family Has dogs Recent travel to [place] Physical Exam Vital Signs Vital Signs Date Time Temp Pulse Resp B/P (MAP) Pulse Ox O2 Delivery O2 Flow Rate FiO2 06/17/17 00:00 98.7 72 20 94/54 (67) 98 06/16/17 20:00 98.2 72 20 109/67 (81) 99 06/16/17 12:00 98.0 76 17 107/68 (81) 97 Physical Exam GENERAL: This is a obese pt who is diaphoretic. SKIN: No rashes, ecchymoses or lesions. Cool and dry. HEAD: Atraumatic. Normocephalic. No temporal or scalp tenderness. EYES: Pupils equal round and reactive. Extraocular motions intact. No scleral icterus. No injection or drainage. ENT: Nose without bleeding, purulent drainage or septal hematoma. Throat without erythema, tonsillar hypertrophy or exudate. Uvula midline. Airway patent. NECK: Trachea midline. No JVD or lymphadenopathy. Supple, nontender, no meningeal signs. CARDIOVASCULAR: Regular rate and rhythm without murmurs, gallops, or rubs. RESPIRATORY: Clear to auscultation. Breath sounds equal bilaterally. No wheezes , rales, or rhonchi. GASTROINTESTINAL: Abdomen soft, non-tender, nondistended. No hepato-splenomegaly , or palpable masses. No guarding. C section site healed MUSCULOSKELETAL: Extremities without clubbing, cyanosis, or edema. No joint tenderness, effusion, or edema noted. No calf tenderness. Negative Homans sign bilaterally. NEUROLOGICAL: Awake and alert. Cranial nerves II through XII intact. Motor and sensory grossly within normal limits. Five out of 5 muscle strength in all muscle groups. Normal speech. Laboratory Laboratory Tests Test 06/16/17 08:45 White Blood Count 9.1 Red Blood Count 3.69 Hemoglobin 10.5 Hematocrit 32.8 Mean Corpuscular Volume 88.9 Mean Corpuscular Hemoglobin 28.5 Mean Corpuscular Hemoglobin Concent 32.0 Red Cell Distribution Width 14.5 Platelet Count 182 Mean Platelet Volume 7.8 Neutrophils (%) (Auto) 72.6 Lymphocytes (%) (Auto) 18.0 Monocytes (%) (Auto) 8.3 Eosinophils (%) (Auto) 0.8 Basophils (%) (Auto) 0.3 Neutrophils # (Auto) 6.6 Lymphocytes # (Auto) 1.6 Monocytes # (Auto) 0.8 Eosinophils # (Auto) 0.1 Basophils # (Auto) 0.0 CBC Comment DIFF FINAL Differential Comment C-Reactive Protein 21.00 Date/Time Source Procedure Growth Status 06/16/17 10:10 Blood Peripheral Aerobic Blood Culture Pending Received 06/16/17 10:10 Blood Peripheral Anaerobic Blood Culture Pending Received 06/15/17 11:00 Nasal Aspirate Influenza Types A,B Antigen (ABNER) - Final NEGATIVE FOR FLU A AND B ANTIGEN.... Complete Result Diagram: 06/16/17 0845 Assessment and Plan Problem List: (1) Acute febrile illness ICD Codes: R50.9 - Fever, unspecified Status: Acute Plan: Likely sec to Pyelonephritis Follow blood cultures Check Urine culture Check EBV (2) Pyelonephritis ICD Codes: N12 - Tubulo-interstitial nephritis, not specified as acute or chronic Status: Acute Plan: Check Urine culture Stop Ceftriaxone Zosyn 3.375 g q6hrs Continue Cipro If fevers persist may need repeat CT scan to make sure no renal abscess has developed. Carmen Davis MD Jun 17, 2017 08:31
[2017-06-17] MEDS: LACTOBACILLUS ACIDOPHILUS TAB PO SCH ×2 (09:00→23:50)
[2017-06-17] MEDS ORDERED: PIPERACIL-TAZO 3.375 GM PREMIX 50 ML IV SCH (10:00)
[2017-06-17] MEDS: traMADol HCL 50 MG TAB PO PRN (10:12)
[2017-06-17] MEDS: CIPROFLOXACIN 500 MG TAB PO SCH ×2 (10:12→23:50)
[2017-06-17 14:47] LABS: C. DIFF EPI 027 PRESUMPTIVE NEGATIVE (NEGATIVE)
[2017-06-17] MEDS: IBUPROFEN 400 MG TAB PO PRN (15:59)
[2017-06-17 20:00] VITALS: BP 110/67; PULSE 65; RESP 18; TEMP 98.5; O2SAT 98
[2017-06-17] MEDS: CEFEPIME 2000 MG/NS 100 ML IV SCH ×2 (23:50)
[2017-06-18 00:51] LABS: EBV VCA IgM Negative (Negative)
--- NOTE | 2017-06-18 08:09 | HHI.PR ---
Subjective Remarks Feeling better. Patient reports she actually felt back to her normal baseline since last evening. Had some paresthesia and burning during Zosyn administrations of that medication was stopped and replaced with cefepime. Had a couple of loose stools yesterday but that too has improved. Tolerating oral intake well. Walking in her room multiple times per day and ambulating out to hallway and back. Desirous of discharge home. Objective Vitals Vital Signs Date Time Temp Pulse Resp B/P (MAP) Pulse Ox O2 Delivery O2 Flow Rate FiO2 06/17/17 20:00 98.5 65 18 110/67 (81) 98 06/17/17 16:59 17 06/17/17 11:12 17 GENERAL: No acute distress. Alert and oriented. Obese. Pleasant and cooperative. SKIN: Warm and dry. No obvious rash noted. HEAD: Normocephalic. EYES: No scleral icterus. No injection or drainage. NECK: Supple, trachea midline. No JVD or lymphadenopathy. CARDIOVASCULAR: Regular rate and rhythm without murmurs, gallops, or rubs. RESPIRATORY: Breath sounds equal bilaterally. No accessory muscle use. GASTROINTESTINAL: Abdomen soft, non-tender, nondistended. Bowel sounds normal. No guarding or rebound. MUSCULOSKELETAL: No cyanosis, or edema. BACK: Nontender without obvious deformity. No CVA tenderness. Result Diagram: 06/16/17 0845 Imaging Last Impressions Chest X-Ray 06/14/17 0000 Signed Impressions: Service Date/Time: Wednesday, June 14, 2017 14:42 - CONCLUSION: Normal examination. Small lung volumes. David Urbano MD Abdomen/Pelvis CT 06/14/17 0000 Signed Impressions: Service Date/Time: Wednesday, June 14, 2017 15:21 - CONCLUSION: Probable pyelonephritis lower pole left kidney. Rest of the study is unremarkable David Urbano MD Urinary Catheter: No Vascular Central Line Catheter: No A/P Problem List: (1) Acute febrile illness ICD Codes: R50.9 - Fever, unspecified Status: Acute Plan: Given her history, recurrent fever and CT findings, pyelonephritis would be a reasonable supposed etiology. Loose stool has diminished. C. difficile negative. AMA negative. Fever curve is improving. CRP noted. ID consult appreciated. We will continue oral Cipro. Hopefully discharge home later today if she remains afebrile. We'll need to discuss with Dr. Davis. (2) Pyelonephritis ICD Codes: N12 - Tubulo-interstitial nephritis, not specified as acute or chronic Status: Acute Plan: Continue antibiotics. Converted to oral Cipro yesterday. Continue oral fluid intake. Antipyretics as needed. Discharge Planning Hopefully discharge home later today versus tomorrow morning. Will again depend on clinical progress. Discussed case with Dr. Davis. She is okay with discharge of patient doesn't have another fever this morning. Would use Cipro orally as sole antibiotic as outpatient. Bijan Blevins MD PhD Jun 18, 2017 08:09
[2017-06-18] MEDS ORDERED: MAPA500T13 PO (08:15)
[2017-06-18] MEDS ORDERED: CIPR-9 PO (08:15)
[2017-06-18] MEDS ORDERED: METH500T3 PO (08:15)
[2017-06-18] MEDS ORDERED: LACT PO (08:15)
--- NOTE | 2017-06-18 08:19 | HHI.DS ---
Discharge Summary Admission Date Jun 15, 2017 at 16:00 Discharge Date: Jun 18, 2017 Admitting Diagnosis acute febrile illness,?pyelo (1) Acute febrile illness Diagnosis: Principal ICD Codes: R50.9 - Fever, unspecified Status: Acute (2) Pyelonephritis Diagnosis: Principal ICD Codes: N12 - Tubulo-interstitial nephritis, not specified as acute or chronic Status: Acute Consultants Infectious disease, Dr. Davis Brief History 22 year-old female presents to the emergency department for the second time today for complaint of urinary frequency urgency and lower abdominal discomfort and fever reportedly at home of 107F yesterday and today when she checked it at home herself using her thermometer. Patient states she took a one-time dose of Tylenol and her fever resolved. Patient's had no nausea no vomiting no generalized abdominal pain no diarrhea. Last menstrual period was beginning of May and normal for her denies . Patient has history of recurrent urinary tract infections with ureterovesicular reflux. Her first series kidney infection was at the age of 2 yo. Patient states symptoms are the same as previous urinary tract infections except for the high fever. She generally does not have a fever with her infections but has had 3 similar infections in her lifetime with high fever. Patient denies any vaginal bleeding or vaginal discharge. She had the essentially negative workup on her first visit around 6 AM today except for questionable abnormalities on her urine. She was given Macrobid and discharged home. She started having fevers again this afternoon and presented back to the ER with a temp of 104.5 and elevated heart rate in the 130s. Reevaluation CBC essentially unremarkable and urine is still minimally abnormal. CT abdomen and pelvis was performed due to complain of some mid back to left flank pain. CT noted for questionable finding in the left lower pole of the kidney which could be associated with pyelonephritis. CT was read as probable pyelonephritis left kidney. It is noted that patient reports she had some scarring and damage to her left kidney as a result of the "kidney" infection she had at age 32 years old. Despite the high fever and tachycardia the patient appears relatively well and in no significant distress on my exam. She notes that she had one episode of vomiting this afternoon prior to presenting back to the ER. No other sick at home. She denies any neck stiffness or photophobia. Denies rash or polyarthralgia. CBC/BMP: 06/16/17 0845 Significant Findings Laboratory Tests Test 06/15/17 22:00 06/16/17 08:45 06/17/17 10:00 06/17/17 10:30 C-Reactive Protein 22.00 MG/DL (0.00-0.30) 21.00 MG/DL (0.00-0.30) Red Blood Count 3.69 MIL/MM3 (4.00-5.30) Hemoglobin 10.5 GM/DL (11.6-15.3) Hematocrit 32.8 % (35.0-46.0) Neutrophils (%) (Auto) 72.6 % (16.0-70.0) Monocytes (%) (Auto) 8.3 % (0.0-8.0) Imaging Last Impressions Chest X-Ray 06/14/17 0000 Signed Impressions: Service Date/Time: Wednesday, June 14, 2017 14:42 - CONCLUSION: Normal examination. Small lung volumes. David Urbano MD Abdomen/Pelvis CT 06/14/17 0000 Signed Impressions: Service Date/Time: Wednesday, June 14, 2017 15:21 - CONCLUSION: Probable pyelonephritis lower pole left kidney. Rest of the study is unremarkable David Urbano MD Hospital Course Patient with history of vesicular ureteral reflux admitted for febrile illness with suspected pyelonephritis. She was started on IV Rocephin and later oral Cipro was added. Initially had high fevers up to 104.5. Temperature curve continued to improve that she had daily temperature spikes prompting an ID consult. Rocephin was discontinued and IV Zosyn was started. Patient had paresthesia and localized burning with the IV Zosyn so it was stopped and cefepime was used instead. Fever curve continued to improve and patient remained afebrile on day of discharge. She was tolerating oral intake quite well and ambulating in the room and to the edges alcohol often. She had a few episodes of loose stool during the hospital stay and C. difficile toxin was tested. C. difficile toxin was negative and her loose stools improved on day prior to discharge. She was instructed on reasons to return. She will remain on Cipro twice a day for the next 7 days. Pt Condition on Discharge: Stable Discharge Instructions DIET: Follow Instructions for: As Tolerated, No Restrictions, Heart Healthy Diet Speech Therapy-Diet Recommends: Regular Activities you can perform: Regular-No Restrictions Follow up Referrals: PCP Follow-up New Orders: C-REACTIVE PROTEIN - 2 Weeks UA C+S IF INDICATED - 2 Weeks New Medications: Ciprofloxacin (Cipro) 500 Mg Tab 500 MG PO Q12HR for Infection, #14 TAB Lactobacillus Acidophilus (Acidophilus/l-Sporogenes) 35 Million Cell-25 Million Cell Tab 1 TAB PO Q12HR for prophylaxis, #30 TAB Methocarbamol (Methocarbamol) 500 Mg Tab 750 MG PO Q8HR PRN for neck spasm, #21 TAB Changed Medications: Acetaminophen (Mapap Extra Strength) 500 Mg Tab 1000 MG PO Q6HR PRN for FEVER, #30 TAB 0 Refills (Changed from: Q4-6H) Discontinued Medications: Nitrofurantoin Monohydrate Macrocrystals (Macrobid) 100 Mg Cap 100 MG PO BID for Infection, #6 CAP 0 Refills Phenazopyridine (Pyridium) 100 Mg Tab 100 MG PO Q8H PRN for DYSURIA, #6 TAB 0 Refills Additional Information Return for fever, nausea vomiting, flank pain, acute change Bijan Blevins MD PhD Jun 18, 2017 08:19
[2017-06-18 08:47] VITALS: BP 138/67; PULSE 75; RESP 16; TEMP 99.4; O2SAT 97
[2017-06-18] MEDS: IBUPROFEN 400 MG TAB PO PRN (10:03)
[2017-06-18] MEDS: SODIUM CHLORIDE 0.9% FLUSH 10 ML FLUSH IV FLUSH SCH (10:03)
[2017-06-18] MEDS: CIPROFLOXACIN 500 MG TAB PO SCH (10:04)
[2017-06-18] MEDS: LACTOBACILLUS ACIDOPHILUS TAB PO SCH (10:04)
[2017-06-18] MEDS: CEFEPIME 2000 MG/NS 100 ML IV SCH ×2 (10:05)
== END 2017-06-18 11:50 | disposition home or self-care (01) | DRG 690 ==
LOC: PHED 13:54 → PHEDA 16:22 → PH5A 17:50 → OBSVTOIN 06-15 16:00
PROVIDERS: ADMIT Family Medicine; ATTEND Family Medicine
DX: N12 Tubulo-interstitial nephritis, not specified as acute or chronic (principal); Z68.43 Body mass index [BMI] 50.0-59.9, adult; E66.9 Obesity, unspecified; Z87.440 Personal history of urinary (tract) infections; R30.0 Dysuria; B34.9 Viral infection, unspecified
CPT/HCPCS: 71010; 74177; 80048; 81001; 83605; 84703; 85025; 86038; 86140; 86664; 86665; 87040; 87086; 87210; 87491; 87493; 87591; 87804; 96361; 96374; G0378; J0692; J0696; J0713; J1885; J2405; J2543; J7030; J7040; Q9967